=== PATIENT | male | born 1980 | race Caucasian/White ===

== ENCOUNTER 2025-03-08 08:53 | Day surgery (SDC) | payer MEDICAID ==
[~2025-03-08 08:53] MED LIST: Sodium Chloride 0.9% 10 ML Syringe FLUSH PRN; Sodium Chloride 0.9% 10 ML Syringe FLUSH SCH
[2025-03-08] MEDS: Lactated Ringers 1,000 ML IV SCH (09:15)
[2025-03-08] MEDS ORDERED: Midazolam 1 MG/ML 2 ML SDV ONE (10:03)
[2025-03-08] MEDS ORDERED: Ropivacaine 0.5% 5 MG/ML 30 ML SDV ONE (10:03)
[2025-03-08] MEDS ORDERED: propofoL 500 MG/50 ML 50 ML ONE ×2 (10:05→10:34)
[2025-03-08] MEDS ORDERED: fentaNYL 250 MCG/5 ML SDV ONE (10:06)
[2025-03-08] MEDS ORDERED: Ondansetron 4 MG/2 ML SDV ONE (10:06)
[2025-03-08] MEDS ORDERED: dexmedeTOMIDine HCl 200 MCG/2 ML SDV ONE (10:06)
[2025-03-08] MEDS ORDERED: ceFAZolin 2 GM Vial ONE (10:25)
[2025-03-08] MEDS ORDERED: Dexamethasone 4 MG/ML 5 ML MDV ONE (10:26)
[2025-03-08] MEDS ORDERED: ePHEDrine 50 MG/ML SDV ONE (10:46)
[2025-03-08] MEDS ORDERED: HYDROmorphone 0.5 MG/0.5 ML Syringe ONE (10:48)
[2025-03-08] MEDS ORDERED: Lactated Ringers 1,000 ML ONE (10:48)
[2025-03-08] MEDS ORDERED: Phenylephrine 1% 10 MG/ML SDV ONE (11:02)
[2025-03-08] MEDS ORDERED: HYDROmorphone 0.5 MG/0.5 ML Syringe IVPUSH PRN (11:07)
[2025-03-08] MEDS ORDERED: fentaNYL 100 MCG/2 ML SDV IVPUSH PRN (11:07)
[2025-03-08] MEDS ORDERED: droPERidol 2.5 MG/ML SDV IV PRN (11:07)
[2025-03-08] MEDS ORDERED: Propofol 200 MG/20 ML SDV ONE (11:20)
[2025-03-08] MEDS ORDERED: Ketorolac 30 MG/ML SDV IVPUSH PRN (11:53)
== END 2025-03-08 14:20 | disposition home or self-care (01) ==
LOC: JD.SDS 08:53
PROVIDERS: ATTEND Orthopaedic Surgery
DX: S82.51XA Displaced fracture of medial malleolus of right tibia, initial encounter for closed fracture (principal); W11.XXXA Fall on and from ladder, initial encounter
CPT/HCPCS: 27766; 64445; 64447; 76000; J0690; J1100; J2250; J2371; J2405; J2704; J2795; J3010; J7120; 01480; 64450; J3490